=== PATIENT | female | born 1985 ===

== ENCOUNTER 2016-08-26 18:27 | Inpatient (IN) | payer SELFPAY ==
[2016-08-26 20:02] LABS: ADD MANUAL DIFF? NO
[2016-08-26 20:10] LABS: BASO # 0.04 K/mm3 (0.0-2.0); BASO % 0.5 % (0.0-3.0); EOS # 0.1 (0.0-0.7); EOS % 1.3 % (1.5-5.0); GRAN # 5.51 (1.4-6.5); GRAN % 72.2 % (50.0-68.0); HEMATOCRIT 40.6 % (36.0-48.0); LYMPH # 1.3 (1.2-3.4); LYMPH % 17.4 % (22.0-35.0); MEAN CORPUSCULAR HEMOGLOBIN 31.4 pg (25.0-35.0); MEAN CORPUSCULAR HGB CONC 34.5 g/dl (31.0-37.0); MONO # 0.7 (0.1-0.6); MONO % 8.6 % (1.0-6.0); PH,URINE 7.5 (4.7-8.0); PLATELET COUNT 238 10^3/uL (120.0-450.0); RED CELL DISTRIBUTION WIDTH 12.2 % (11.5-14.5); URINE BILIRUBIN MODERATE (NEGATIVE); URINE BLOOD SMALL (NEGATIVE); URINE GLUCOSE (UA) NEGATIVE (NEGATIVE); URINE KETONE 15 mg/dL (NEGATIVE); URINE LEUKOCYTE ESTERASE TRACE Leu/uL (NEGATIVE); URINE PROTEIN TRACE mg/dL (<30 mg/dL); WHITE BLOOD COUNT 7.6 10^3/ul (4.5-11.0)
[2016-08-26 20:16] LABS: URINE APPEARANCE CLEAR (CLEAR); URINE COLOR YELLOW (YELLOW)
[2016-08-26 20:19] LABS: ALB/GLOB RATIO 1.4 (1.1-1.8); ALKALINE PHOSPHATASE 75 U/L (38-133); ALT/SGPT 302 U/L (7-56); AST/SGOT 241 U/L (15-39); BILIRUBIN,TOTAL 2.9 mg/dL (0.2-1.3); BLOOD UREA NITROGEN 5 mg/dL (7-21); CALCIUM 9.5 mg/dL (8.4-10.5); CARBON DIOXIDE 27 mmol/L (21-33); CHLORIDE 102 mmol/L (98-107); GFR AFRICAN-AMERICAN > 60; GLUCOSE,RANDOM 91 mg/dL (70-110); LIPASE 180 U/L (23-300); POTASSIUM 3.9 mmol/L (3.6-5.0); SODIUM 139 mmol/L (132-148); TOTAL PROTEIN 7.6 g/dL (5.8-8.3)
[2016-08-26 20:28] LABS: INR 0.99 (0.93-1.08); PARTIAL THROMBOPLASTIN TIME 25.9 Seconds (23.7-30.8)
[2016-08-26 20:31] LABS: URINE AMORPHOUS SEDIMENT SMALL; URINE BACTERIA MANY (NEG)
--- NOTE | 2016-08-26 21:32 | US ---
EXAM: US Abdomen Limited, Right Upper Quadrant CLINICAL HISTORY: 31 years old, female; Pain; Abdominal pain; Additional info: Ruq pain TECHNIQUE: Real-time ultrasound of the right upper quadrant with image documentation. COMPARISON: No relevant prior studies available. FINDINGS: Liver: Fatty infiltration. No mass. No intrahepatic ductal dilatation. Gallbladder: Gallstones. 0.34 cm wall thickness. No pericholecystic fluid. No sonographic Yancey's sign. Common bile duct: No dilatation. No stones. Pancreas: Unremarkable as visualized. Right kidney: Normal echogenicity. No hydronephrosis. IMPRESSION: 1. Cholelithiasis with minimal gallbladder wall thickening. Clinical correlation is needed. 2. Incidental/non-acute findings are described above.
[2016-08-26] MEDS ORDERED: metroNIDAZOLE IV 500 mg/100 ml 500 MG/100 ML BAG IVPB STA (22:14)
[2016-08-26] MEDS ORDERED: Ciprofloxacin 400mg/200ml D5W 400 MG/200 ML BAG IVPB STA (22:14)
--- NOTE | 2016-08-26 22:39 | ED PDOC ---
Arrival/HPI - General Chief Complaint: Abdominal Pain Time Seen by Provider: 08/26/16 19:05 Historian: Patient - History of Present Illness Narrative History of Present Illness (Text): 08/26/16 22:36 Rekha Burks is a 31 year old female, with no significant past medical history , presents to the emergency department complaining of 2 day duration of epigastric pain and right upper quadrant abdominal pain. Denies any fever, chills, nausea, vomiting, diarrhea, urinary symptoms, or any other complaints at this time. Time/Duration: < week (2 days ) Symptom Onset: Gradual Symptom Course: Unchanged Severity Level: Mild Activities at Onset: Light Past Medical History - Provider Review Nursing Documentation Reviewed: Yes - Infectious Disease Hx of Infectious Diseases: None - Reproductive Menopause: No - Psychiatric Hx Substance Use: No - Anesthesia Hx Anesthesia: No Family/Social History - Physician Review Nursing Documentation Reviewed: Yes Family/Social History: No Known Family HX Smoking Status: Unknown If Ever Smoked Hx Alcohol Use: Yes Frequency of alcohol use: Socially Hx Substance Use: No Allergies/Home Meds Allergies/Adverse Reactions: Allergies No Known Allergies Allergy (Verified 08/26/16 18:49) Home Medications: Home Meds Medication Instructions Recorded Confirmed No Known Home Med 08/26/16 08/26/16 Review of Systems - Physician Review All systems were reviewed & negative as marked: Yes - Review of Systems Constitutional: Normal. absent: Fatigue, Fevers Respiratory: Normal. absent: SOB, Cough, Sputum Cardiovascular: Normal. absent: Chest Pain, Palpitations Gastrointestinal: Abdominal Pain (RUQ and epigastric ). absent: Diarrhea, Nausea, Vomiting Genitourinary Female: Normal. absent: Dysuria, Frequency Musculoskeletal: Normal Neurological: Normal. absent: Headache, Dizziness Psychiatric: Normal Physical Exam Vital Signs Reviewed: Yes Vital Signs Temp Pulse Resp BP Pulse Ox 08/26/16 23:39 16 98 08/26/16 22:53 97.7 F 73 16 112/64 100 08/26/16 18:45 98.6 F 68 16 119/77 100 Temperature: Afebrile Blood Pressure: Normal Pulse: Regular Respiratory Rate: Normal Appearance: Positive for: Well-Appearing, Non-Toxic, Comfortable Pain Distress: None Mental Status: Positive for: Alert and Oriented X 3 - Systems Exam Head: Present: Atraumatic, Normocephalic Pupils: Present: PERRL Conjunctiva: Present: Normal Respiratory/Chest: Present: Clear to Auscultation, Good Air Exchange. No: Respiratory Distress, Accessory Muscle Use Cardiovascular: Present: Regular Rate and Rhythm, Normal S1, S2. No: Murmurs Abdomen: Present: Tenderness (Right upper quadrant tenderness ), Normal Bowel Sounds. No: Distention, Peritoneal Signs, Rebound, Guarding Upper Extremity: Present: Normal Inspection. No: Cyanosis, Edema Lower Extremity: Present: Normal Inspection. No: Edema Neurological: Present: GCS=15, CN II-XII Intact, Speech Normal Skin: Present: Warm, Dry, Normal Color. No: Rashes Psychiatric: Present: Alert, Oriented x 3, Normal Insight, Normal Concentration Medical Decision Making ED Course and Treatment: 08/26/16 22:39 Impression: A 31 year old female who presents to the emergency department complaining of right upper quadrant abdominal pain and epigastric pain for past 2 days. Plan: -- Labs, Lipase -- Cipro, flagyl -- Blood culture -- Urine culture -- POC urine preg -- Urinalysis -- Ultrasound Gallbladder Progress Notes: 08/26/16 22:43 EXAM: US Abdomen Limited, Right Upper Quadrant FINDINGS: Liver: Fatty infiltration. No mass. No intrahepatic ductal dilatation. Gallbladder: Gallstones. 0.34 cm wall thickness. No pericholecystic fluid. No sonographic Yancey's sign. Common bile duct: No dilatation. No stones. Pancreas: Unremarkable as visualized. Right kidney: Normal echogenicity. No hydronephrosis. IMPRESSION: 1. Cholelithiasis with minimal gallbladder wall thickening. Clinical correlation is needed. 2. Incidental/non-acute findings are described above. Case discussed with Dr. Carpenter is aware and agrees with the plan to admit patient to [facility] for cholecystitis. Accepts patient under hospitalist service. - Lab Interpretations Lab Results: 08/26/16 20:01 08/26/16 20:01 Lab Results 08/26/16 20:01: Sodium 139, Potassium 3.9, Chloride 102, Carbon Dioxide 27, Anion Gap 14, BUN 5 L, Creatinine 0.6, Est GFR ( Amer) > 60, Est GFR (Non -Af Amer) > 60, Random Glucose 91, Calcium 9.5, Total Bilirubin 2.9 H, AST 241 H , ALT 302 H, Alkaline Phosphatase 75, Total Protein 7.6, Albumin 4.4, Globulin 3.1, Albumin/Globulin Ratio 1.4, Lipase 180 08/26/16 20:01: Urine Color Yellow, Urine Appearance Clear, Urine pH 7.5, Ur Specific [place] 1.015, Urine Protein Trace H, Urine Glucose (UA) Negative, Urine Ketones 15 H, Urine Blood Small H, Urine Nitrate Negative, Urine Bilirubin Moderate H, Urine Urobilinogen 2.0 H, Ur Leukocyte Esterase Trace H, Urine RBC 10 - 15, Urine WBC 5 - 10, Ur Epithelial Cells 4 - 5, Amorphous Sediment Small, Urine Bacteria Many, Urine Other Uyeast 08/26/16 20:01: PT 10.7, INR 0.99, APTT 25.9 08/26/16 20:01: WBC 7.6, RBC 4.46, Hgb 14.0, Hct 40.6, MCV 91.0, MCH 31.4, MCHC 34.5, RDW 12.2, Plt Count 238, MPV 10.0, Gran % 72.2 H, Lymph % (Auto) 17.4 L, [place] % (Auto) 8.6 H, Eos % (Auto) 1.3 L, Baso % (Auto) 0.5, Gran # 5.51, Lymph # 1.3, [place] # 0.7 H, Eos # 0.1, Baso # 0.04 I have reviewed the lab results: Yes - RAD Interpretation Radiology Orders: 08/26/16 19:24 GALL BLADDER [US] Stat Home Appliance Tech: Radiologist - Medication Orders Current Medication Orders: Acetaminophen (Tylenol 325mg Tab) 650 mg PO Q6 PRN PRN Reason: Pain, Mild (1-3) Docusate Sodium (Colace) 100 mg PO DAILY PRN PRN Reason: Constipation Famotidine (Pepcid) 20 mg PO BID [facility] Ampicillin Sodium/Sulbactam (Sodium 3 gm/ Sodium Chloride) 100 mls @ 200 mls/ hr IVPB Q6 [facility] PRN Reason: Protocol Sodium Chloride (Sodium Chloride 0.9%) 1,000 mls @ 150 mls/hr IV .Q6H40M [facility] Last Admin: 08/27/16 00:22 Dose: 150 mls/hr Morphine Sulfate (Morphine) 2 mg IVP Q4H PRN PRN Reason: Pain, moderate (4-7) Ondansetron HCl (Zofran Inj) 4 mg IVP Q6H PRN PRN Reason: Nausea/Vomiting Discontinued Medications Ciprofloxacin (Cipro 400mg/200ml Dsw) 400 mg in 200 mls @ 133.3 mls/hr IVPB [facility] PRN Reason: Protocol Stop: 08/26/16 23:44 Last Admin: 08/27/16 00:23 Dose: 133.3 mls/hr Metronidazole (Flagyl) 500 mg in 100 mls @ 100 mls/hr IVPB [facility] PRN Reason: Protocol Stop: 08/26/16 23:13 Last Admin: 08/26/16 22:48 Dose: 100 mls/hr Pneumococcal Polyvalent Vaccine (Pneumovax 23 Vaccine) 0.5 ml IM .ONCE ONE Stop: 08/27/16 01:19 - Scribe Statement The provider has reviewed the documentation as recorded by the Francisco Bo Provider Attestation: All medical record entries made by the Francisco were at my direction and personally dictated by me. I have reviewed the chart and agree that the record accurately reflects my personal performance of the history, physical exam, medical decision making, and the department course for this patient. I have also personally directed, reviewed, and agree with the discharge instructions and disposition. Disposition/Present on Arrival - Present on Arrival Any Indicators Present on Arrival: No History of DVT/PE: No History of Uncontrolled Diabetes: No Urinary Catheter: No History of Decub. Ulcer: No History Surgical Site Infection Following: None - Disposition Have Diagnosis and Disposition been Completed?: Yes Diagnosis: Cholecystitis Disposition: HOSPITALIZED Disposition Time: 22:50 Condition: FAIR
[2016-08-26] MEDS ORDERED: Morphine 2 mg/ml ISec IVP PRN (23:00)
--- NOTE | 2016-08-26 23:01 | CP.PCM.HP ---
Addendum entered and electronically signed by Rocio Starr DO 08/27/16 01:06: Heparin not ordered- pt low risk for DVT- to ambulate/OOBTC, use SCD; pepcid for GI ppx. Original Note: <Rocio Starr - Last Filed: 08/27/16 01:00> History of Present Illness - History of Present Illness History of Present Illness: Internal medicine H & P for Hospitalist service- Rocio Starr, PGY-1 Pt S & E at bedside. 31F w/no sig PMH admitted to hospital for abdominal pain x 1 day. Pain is epigastric, radiates to low back B/L, with variable intensity: moderate to severe, intermittent since onset. Pt reports pain onset at 5:30pm on day [employer], lasted until 3am, pt was able to sleep at that point. Pt awoke at 6am with pain of moderate intensity, intensity increased at 10:30am on day of admission, lasted until admission to hospital. Pt reports similar episode of abdominal pain w/shorter duration a few mos prior. No inciting, alleviating or aggravating factors identified. Admits to nausea, chills, diaphoresis. Denies emesis, association with fatty foods, chest pain, SOB, cough, congestion, sore throat, rhinorrhea, constipation, diarrhea, dysuria, urinary frequency, hematuria, hematochezia, changes in vision. PMH: Denies PSH: Denies All: Denies SH: Occasional ETOH use: 2-3 drinks per week, denies tobacco or illicit drug use PMD: [facility] in [place] Pharmacy: [facility] Present on Admission - Present on Admission Any Indicators Present on Admission: No History of DVT/PE: No History of Uncontrolled Diabetes: No Urinary Catheter: No Decubitus Ulcer Present: No Review of Systems - Review of Systems All systems: reviewed and no additional remarkable complaints except - Constitutional Constitutional: Chills. absent: Fever, Weakness - EENT Eyes: absent: Blurred Vision, Change in Vision, Diplopia Ears: absent: Dizziness Nose/Mouth/Throat: absent: Nasal Congestion, Sore Throat, Neck Pain - Cardiovascular Cardiovascular: absent: Chest Pain, Leg Edema, Lightheadedness, Palpitations - Respiratory Respiratory: absent: Cough, Dyspnea, Wheezing, Chest Congestion - Gastrointestinal Gastrointestinal: Abdominal Pain, Nausea. absent: Constipation, Diarrhea, Hematemesis, Hematochezia, Vomiting - Genitourinary Genitourinary: absent: Change in Urinary Stream, Dysuria, Flank Pain, Hematuria - Musculoskeletal Musculoskeletal: absent: Numbness, Tingling - Integumentary Integumentary: absent: Rash - Neurological Neurological: absent: Numbness, Tingling - Endocrine Endocrine: absent: Palpitations Past Patient History - Infectious Disease Hx of Infectious Diseases: None - Past Social History Smoking Status: Unknown If Ever Smoked - PSYCHIATRIC Hx Substance Use: No - ANESTHESIA Hx Anesthesia: No Meds Allergies/Adverse Reactions: Allergies Allergy/AdvReac Type Severity Reaction Status Date / Time No Known Allergies Allergy Verified 08/26/16 18:49 Physical Exam - Constitutional Appears: Non-toxic, No Acute Distress - Head Exam Head Exam: ATRAUMATIC, NORMAL INSPECTION, NORMOCEPHALIC - Eye Exam Eye Exam: EOMI, Normal appearance, PERRL Pupil Exam: NORMAL ACCOMODATION, PERRL - ENT Exam ENT Exam: Mucous Membranes Moist, Normal Exam - Neck Exam Neck exam: Positive for: Full Rom, Normal Inspection - Respiratory Exam Respiratory Exam: Clear to Auscultation Bilateral, NORMAL BREATHING PATTERN - Cardiovascular Exam Cardiovascular Exam: REGULAR RHYTHM, +S1, +S2 - GI/Abdominal Exam GI & Abdominal Exam: Hypoactive Bowel Sounds, Soft. absent: Distended, Firm, Guarding, Rigid, Tenderness - Extremities Exam Extremities exam: Positive for: full ROM, normal inspection. Negative for: pedal edema, tenderness - Back Exam Back exam: FULL ROM, NORMAL INSPECTION. absent: paraspinal tenderness, tenderness - Neurological Exam Neurological exam: Alert, CN II-XII Intact, Oriented x3 - Psychiatric Exam Psychiatric exam: Normal Affect, Normal Mood - Skin Skin Exam: Dry, Intact, Normal Color, Warm Results - Vital Signs Recent Vital Signs: Last Vital Signs Temp 97.7 F 08/26/16 22:53 Pulse 73 08/26/16 22:53 Resp 16 08/26/16 22:53 BP 112/64 08/26/16 22:53 Pulse Ox 100 08/26/16 22:53 - Labs Result Diagrams: 08/26/16 20:01 08/26/16 20:01 Assessment & Plan - Assessment and Plan (Free Text) Assessment: Acute Cholecystitis Afebrile No leukocytosis T bili 2.9 AST 241 ALT 302 AlP 75 Lipase 180 U/A pos for trace LE, neg for nitrates FU blood cx FU urine cx Morphine 2mg Q4H PRN Colace 100mg PO daily PRN constipation Zofran 4mg Q6H PRN Unasyn 3gm Q6H Given Cipro and Flagyl in ED Ab U/S 1. Cholelithiasis with minimal gallbladder wall thickening. Clinical correlation is needed. Gen surg consulted- [facility]- [facility] for GI consult GI consulted- [facility]/DVT ppx SCD Heparin Dispo Admit to med surg VS Q4H [facility] DW attending - Date & Time Date: 08/26/16 Time: 23:01 Decision To Admit - Pt Status Changed To: Hospital Disposition Of: Observation - . Bed Request Type: Med/Surg Admitting Physician: Terrance Carpenter MD <Terrance Carpenter MD - Last Filed: 08/31/16 08:10> Results - Vital Signs Recent Vital Signs: Last Vital Signs Temp 98.1 F 08/28/16 17:28 Pulse 89 08/28/16 18:28 Resp 20 08/28/16 18:28 BP 108/67 08/28/16 18:28 Pulse Ox 99 08/28/16 18:28 - Labs Result Diagrams: 08/29/16 06:00 08/29/16 06:00 Attending/Attestation - Attestation I have personally seen and examined this patient.: Yes I have fully participated in the care of the patient.: Yes I have reviewed all pertinent clinical information: Yes Notes (Text): 08/31/16 08:10 -I agree with the above H&P completed by the resident physician.
[2016-08-27] MEDS: Sodium Chloride 0.9% 1,000 ML IV SCH ×3 (00:22→13:03)
[2016-08-27] MEDS ORDERED: Pneumococcal 23-Valent Vaccine IM ONE (01:18)
--- NOTE | 2016-08-27 04:35 | CP.PCM.CON ---
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 Johns 31F w/no sig PMH admitted to hospital for abdominal pain x 1 day. Pain is epigastric, radiates to low back B/L, with variable intensity: moderate to severe, intermittent since onset. Pt reports pain onset at 5:30pm on day [employer], lasted until 3am, pt was able to sleep at that point. Pt awoke at 6am with pain of moderate intensity, intensity increased at 10:30am on day of admission, lasted until admission to hospital. Pt reports similar episode of abdominal pain w/shorter duration a few mos prior. This is the 3rd time. No inciting, alleviating or aggravating factors identified. Admits to nausea, chills, diaphoresis. Denies emesis, association with fatty foods, chest pain, SOB, cough , congestion, sore throat, rhinorrhea, constipation, diarrhea, dysuria, urinary frequency, chane in urine or stool color, hematuria, hematochezia, hematemesis, changes in vision. Pt reports having EGD in the past. It was normal. There's a family hx of cholecystectomy. Review of Systems - Review of Systems Review of Systems: See HPI Past Patient History - Infectious Disease Hx of Infectious Diseases: None - Past Social History Smoking Status: Unknown If Ever Smoked - CARDIAC Hx Cardiac Disorders: No - PULMONARY Hx Respiratory Disorders: No - NEUROLOGICAL Hx Neurological Disorder: No - HEENT Hx HEENT Problems: No - RENAL Hx Chronic Kidney Disease: No - ENDOCRINE/METABOLIC Hx Endocrine Disorders: No - HEMATOLOGICAL/ONCOLOGICAL Hx Blood Disorders: No - INTEGUMENTARY Hx Dermatological Problems: No - MUSCULOSKELETAL/RHEUMATOLOGICAL Hx Falls: No - GASTROINTESTINAL Hx Gastrointestinal Disorders: No - GENITOURINARY/GYNECOLOGICAL Hx Genitourinary Disorders: No - PSYCHIATRIC Hx Substance Use: No - SURGICAL HISTORY Hx Surgeries: No - ANESTHESIA Hx Anesthesia: No Meds Allergies/Adverse Reactions: Allergies Allergy/AdvReac Type Severity Reaction Status Date / Time No Known Allergies Allergy Verified 08/26/16 18:49 - Medications Medications: Current Medications Acetaminophen (Tylenol 325mg Tab) 650 mg PO Q6 PRN PRN Reason: Pain, Mild (1-3) Docusate Sodium (Colace) 100 mg PO DAILY PRN PRN Reason: Constipation Famotidine (Pepcid) 20 mg PO BID [facility] Ampicillin Sodium/Sulbactam (Sodium 3 gm/ Sodium Chloride) 100 mls @ 200 mls/ hr IVPB Q6 [facility] PRN Reason: Protocol Sodium Chloride (Sodium Chloride 0.9%) 1,000 mls @ 150 mls/hr IV .Q6H40M [facility] Last Admin: 08/27/16 00:22 Dose: 150 mls/hr Morphine Sulfate (Morphine) 2 mg IVP Q4H PRN PRN Reason: Pain, moderate (4-7) Ondansetron HCl (Zofran Inj) 4 mg IVP Q6H PRN PRN Reason: Nausea/Vomiting Physical Exam - Constitutional Appears: No Acute Distress - Head Exam Head Exam: ATRAUMATIC, NORMAL INSPECTION, NORMOCEPHALIC - Eye Exam Eye Exam: EOMI, Normal appearance, PERRL Pupil Exam: NORMAL ACCOMODATION, PERRL - ENT Exam ENT Exam: Mucous Membranes Moist, Normal Exam - Neck Exam Neck exam: Positive for: Normal Inspection - Respiratory Exam Respiratory Exam: Clear to Auscultation Bilateral, NORMAL BREATHING PATTERN - Cardiovascular Exam Cardiovascular Exam: REGULAR RHYTHM - GI/Abdominal Exam GI & Abdominal Exam: Normal Bowel Sounds, Soft. absent: Tenderness - Extremities Exam Extremities exam: Positive for: full ROM, normal inspection - Back Exam Back exam: NORMAL INSPECTION - Neurological Exam Neurological exam: Alert, CN II-XII Intact, Normal Gait, Oriented x3, Reflexes Normal - Psychiatric Exam Psychiatric exam: Normal Affect, Normal Mood - Skin Skin Exam: Dry, Intact, Normal Color, Warm Results - Vital Signs Recent Vital Signs: Last Vital Signs Temp 97.7 F 08/27/16 01:01 Pulse 60 08/27/16 01:01 Resp 20 08/27/16 01:01 BP 90/58 L 08/27/16 01:01 Pulse Ox 98 08/26/16 23:39 - Labs Result Diagrams: 08/26/16 20:01 08/26/16 20:01 Assessment & Plan - Assessment and Plan (Free Text) Assessment: Recurrent biliary colic v choledocolithiasis US: Cholelithiasis Tibili 3 [id number] ALT 300 No leukocytosis, Afebrile -Rec GI consult for possible choledocolithiasis -Trend LFT -NPO -IVF -ABX -Pain control -We will closely monitor Will CASSIA Johns
[2016-08-27] MEDS: Ampicillin/Sulbactam 3 GM in Sodium Chloride 0.9% 100 ML IVPB SCH ×2 (04:36→05:55)
[2016-08-27 07:42] LABS: ADD MANUAL DIFF? NO
[2016-08-27 07:44] LABS: BASO # 0.06 K/mm3 (0.0-2.0); BASO % 1.1 % (0.0-3.0); EOS # 0.2 (0.0-0.7); EOS % 2.9 % (1.5-5.0); GRAN # 2.44 (1.4-6.5); GRAN % 46.6 % (50.0-68.0); HEMATOCRIT 37.9 % (36.0-48.0); LYMPH % 37.8 % (22.0-35.0); MEAN CELL VOLUME 91.1 fL (80.0-105.0); MEAN PLATELET VOLUME 9.8 fl (7.0-11.0); MONO # 0.6 (0.1-0.6); MONO % 11.6 % (1.0-6.0); PLATELET COUNT 209 10^3/uL (120.0-450.0); RED CELL DISTRIBUTION WIDTH 12.4 % (11.5-14.5); WHITE BLOOD COUNT 5.2 10^3/ul (4.5-11.0)
[2016-08-27 08:01] LABS: ALB/GLOB RATIO 1.4 (1.1-1.8); ALKALINE PHOSPHATASE 113 U/L (38-133); ALT/SGPT 329 U/L (7-56); AST/SGOT 295 U/L (15-39); BILIRUBIN,TOTAL 1.4 mg/dL (0.2-1.3); BLOOD UREA NITROGEN 5 mg/dL (7-21); CARBON DIOXIDE 25 mmol/L (21-33); CHLORIDE 105 mmol/L (95-110); GFR AFRICAN-AMERICAN > 60; GLUCOSE,RANDOM 84 mg/dL (70-110); POTASSIUM 3.8 mmol/L (3.6-5.0); SODIUM 140 mmol/L (132-148); TOTAL PROTEIN 6.7 g/dL (5.8-8.3)
[2016-08-27] MEDS ORDERED: Ciprofloxacin 200mg/100ml D5W 100 ML IVPB SCH (10:00)
[2016-08-27] MEDS: metroNIDAZOLE IV 500 mg/100 ml 500 MG/100 ML BAG IVPB SCH ×3 (11:00→22:44)
--- NOTE | 2016-08-27 11:22 | CP.PCM.CON ---
<Gaby Kline - Last Filed: 08/27/16 15:59> History of Present Illness - History of Present Illness History of Present Illness: Gastroenterology Fellow/PGY4 Consult Note 31 year old female with no prior medical history presenting with abdominal pain. Patient describes intermittent progressive epigastric pain on thursday with radiation to lower back. Sudden constant discomfort on Thursday with associated nausea, chills, and sweats leading to ER presentation. Similar symptoms 2 months ago for one night with spontaneous resolution. Denies vomiting, fever, hematemesis, diarrhea, constipation, melena, hematochezia, jaundice, scleral icterus, pruritis, or unintentional weight loss. Pain currently resolved. No prior EGD or colonoscopy. Family- mother- cholelithiasis s/p cholecystectomy, paternal grandfather- colorectal cancer in late 50s of age Social-denies tobacco or illicit drug use, social wine intake Surgery-none Review of Systems - Review of Systems Review of Systems: A 12-point review of systems negative except for as above Past Patient History - Infectious Disease Hx of Infectious Diseases: None - Past Social History Smoking Status: Unknown If Ever Smoked - CARDIAC Hx Cardiac Disorders: No - PULMONARY Hx Respiratory Disorders: No - NEUROLOGICAL Hx Neurological Disorder: No - HEENT Hx HEENT Problems: No - RENAL Hx Chronic Kidney Disease: No - ENDOCRINE/METABOLIC Hx Endocrine Disorders: No - HEMATOLOGICAL/ONCOLOGICAL Hx Blood Disorders: No - INTEGUMENTARY Hx Dermatological Problems: No - MUSCULOSKELETAL/RHEUMATOLOGICAL Hx Falls: No - GASTROINTESTINAL Hx Gastrointestinal Disorders: No - GENITOURINARY/GYNECOLOGICAL Hx Genitourinary Disorders: No - PSYCHIATRIC Hx Substance Use: No - SURGICAL HISTORY Hx Surgeries: No - ANESTHESIA Hx Anesthesia: No Meds Allergies/Adverse Reactions: Allergies Allergy/AdvReac Type Severity Reaction Status Date / Time No Known Allergies Allergy Verified 08/26/16 18:49 - Medications Medications: Current Medications Acetaminophen (Tylenol 325mg Tab) 650 mg PO Q6 PRN PRN Reason: Pain, Mild (1-3) Docusate Sodium (Colace) 100 mg PO DAILY PRN PRN Reason: Constipation Last Admin: 08/27/16 09:12 Dose: 100 mg Famotidine (Pepcid) 20 mg PO BID [facility] Last Admin: 08/27/16 09:09 Dose: 20 mg Sodium Chloride (Sodium Chloride 0.9%) 1,000 mls @ 150 mls/hr IV .Q6H40M [facility] Last Admin: 08/27/16 00:22 Dose: 150 mls/hr Ciprofloxacin (Cipro 200mg/100ml D5w) 100 mls @ 67 mls/hr IVPB Q12 [facility] PRN Reason: Protocol Stop: 08/27/16 11:30 Metronidazole (Flagyl) 500 mg in 100 mls @ 100 mls/hr IVPB Q8 [facility] PRN Reason: Protocol Morphine Sulfate (Morphine) 2 mg IVP Q4H PRN PRN Reason: Pain, moderate (4-7) Ondansetron HCl (Zofran Inj) 4 mg IVP Q6H PRN PRN Reason: Nausea/Vomiting Physical Exam - Constitutional Appears: Non-toxic, No Acute Distress - Head Exam Head Exam: ATRAUMATIC, NORMOCEPHALIC - Eye Exam Eye Exam: EOMI, PERRL Pupil Exam: PERRL. absent: Miosis, Mydriatic - ENT Exam ENT Exam: Mucous Membranes Moist, Normal Oropharynx - Neck Exam Neck exam: Positive for: Full Rom, Normal Inspection - Respiratory Exam Respiratory Exam: Clear to Auscultation Bilateral. absent: Rales, Rhonchi, Wheezes - Cardiovascular Exam Cardiovascular Exam: RRR, +S1, +S2. absent: Gallop, Rubs - GI/Abdominal Exam GI & Abdominal Exam: Normal Bowel Sounds, Soft. absent: Distended, Firm, Guarding, Organomegaly, Rebound, Rigid, Tenderness - Extremities Exam Extremities exam: Positive for: full ROM. Negative for: pedal edema - Neurological Exam Neurological exam: Alert, Oriented x3 - Psychiatric Exam Psychiatric exam: Normal Affect, Normal Mood - Skin Skin Exam: Dry, Intact, Normal Color, Warm Results - Vital Signs Recent Vital Signs: Last Vital Signs Temp 97.6 F 08/27/16 04:00 Pulse 51 L 08/27/16 04:00 Resp 19 08/27/16 04:00 BP 98/56 L 08/27/16 04:00 Pulse Ox 97 08/27/16 04:00 - Labs Result Diagrams: 08/27/16 07:30 08/27/16 07:30 Labs: Laboratory Results - last 24 hr 08/27/16 08/27/16 07:30 07:30 WBC 5.2 D RBC 4.16 Hgb 12.9 Hct 37.9 MCV 91.1 MCH 31.0 MCHC 34.0 RDW 12.4 Plt Count 209 MPV 9.8 Gran % 46.6 L Lymph % (Auto) 37.8 H [place] % (Auto) 11.6 H Eos % (Auto) 2.9 Baso % (Auto) 1.1 Gran # 2.44 Lymph # 2.0 [place] # 0.6 Eos # 0.2 Baso # 0.06 Sodium 140 Potassium 3.8 Chloride 105 Carbon Dioxide 25 Anion Gap 14 BUN 5 L Creatinine 0.6 Est GFR ( Amer) > 60 Est GFR (Non-Af Amer) > 60 Random Glucose 84 Calcium 9.0 Total Bilirubin 1.4 H AST 295 H ALT 329 H Alkaline Phosphatase 113 Total Protein 6.7 Albumin 3.9 Globulin 2.7 Albumin/Globulin Ratio 1.4 Assessment & Plan - Assessment and Plan (Free Text) Assessment: 31 year old female with no prior medical history presenting with abdominal pain. Ultrasound showed cholelithiasis with cholecystitis. No prior EGD or colonoscopy. Plan: >ordered MRCP- no choledocholithiasis >surgery managing- cholecystectomy tomorrow >>clear liquids, NPO after midnight >supportive care- pain control, IVFs, antiemetics >will follow clinical course <Todd GIRON,[facility] - Last Filed: 08/27/16 17:35> Meds - Medications Medications: Current Medications Acetaminophen (Tylenol 325mg Tab) 650 mg PO Q6 PRN PRN Reason: Pain, Mild (1-3) Docusate Sodium (Colace) 100 mg PO DAILY PRN PRN Reason: Constipation Last Admin: 08/27/16 09:12 Dose: 100 mg Famotidine (Pepcid) 20 mg PO BID [facility] Last Admin: 08/27/16 17:19 Dose: 20 mg Sodium Chloride (Sodium Chloride 0.9%) 1,000 mls @ 150 mls/hr IV .Q6H40M [facility] Last Admin: 08/27/16 13:03 Dose: 150 mls/hr Metronidazole (Flagyl) 500 mg in 100 mls @ 100 mls/hr IVPB Q8 [facility] PRN Reason: Protocol Last Admin: 08/27/16 15:39 Dose: 100 mls/hr Ciprofloxacin (Cipro 400mg/200ml Dsw) 400 mg in 200 mls @ 133.3 mls/hr IVPB Q12 [facility] PRN Reason: Protocol Stop: 08/28/16 11:31 Morphine Sulfate (Morphine) 2 mg IVP Q4H PRN PRN Reason: Pain, moderate (4-7) Ondansetron HCl (Zofran Inj) 4 mg IVP Q6H PRN PRN Reason: Nausea/Vomiting Results - Vital Signs Recent Vital Signs: Last Vital Signs Temp 97.6 F 08/27/16 04:00 Pulse 51 L 08/27/16 04:00 Resp 19 08/27/16 04:00 BP 98/56 L 08/27/16 04:00 Pulse Ox 97 08/27/16 04:00 - Labs Result Diagrams: 08/27/16 07:30 08/27/16 07:30 Labs: Laboratory Results - last 24 hr 08/27/16 16:29 Beta HCG, Quant < 2.39 Attending/Attestation - Attestation I have personally seen and examined this patient.: Yes I have fully participated in the care of the patient.: Yes I have reviewed all pertinent clinical information: Yes Notes (Text): 08/27/16 17:30 This is a 31 year old female with no prior medical history presenting with abdominal pain. Ultrasound showed cholelithiasis with cholecystitis. Pending MRCP. Scheduled MRCP- pending imaging. CBD normal on sonogram. CCY scheduled with surgery in am. Clear liquid diet tonight and NPO past midnight.
--- NOTE | 2016-08-27 12:03 | CP.PCM.PN ---
<Melissa Groves - Last Filed: 08/27/16 15:50> Subjective - Date & Time of Evaluation Date of Evaluation: 08/27/16 Time of Evaluation: 07:30 - Subjective Subjective: Hospitalist progress note for Dr. Cason Patient s/e at bedside this AM. NAEO. States that her pain and nausea is resolved. Denies vomiting, diarrhea, constipation, back pain, fevers, chills, chest pain, and SOB. States that she is hungry. Explained that she is NPO until GI and surgery decide plan of her care. Patient understood and agreed. Objective - Vital Signs/Intake and Output Vital Signs (last 24 hours): Temp Pulse Resp BP Pulse Ox 97.6 F 51 L 19 98/56 L 97 08/27/16 04:00 08/27/16 04:00 08/27/16 04:00 08/27/16 04:00 08/27/16 04:00 Intake and Output: 08/27/16 08/27/16 06:59 18:59 Intake Total 1500 Balance 1500 - Medications Medications: Current Medications Acetaminophen (Tylenol 325mg Tab) 650 mg PO Q6 PRN PRN Reason: Pain, Mild (1-3) Docusate Sodium (Colace) 100 mg PO DAILY PRN PRN Reason: Constipation Last Admin: 08/27/16 09:12 Dose: 100 mg Famotidine (Pepcid) 20 mg PO BID [facility] Last Admin: 08/27/16 09:09 Dose: 20 mg Sodium Chloride (Sodium Chloride 0.9%) 1,000 mls @ 150 mls/hr IV .Q6H40M [facility] Last Admin: 08/27/16 00:22 Dose: 150 mls/hr Metronidazole (Flagyl) 500 mg in 100 mls @ 100 mls/hr IVPB Q8 [facility] PRN Reason: Protocol Morphine Sulfate (Morphine) 2 mg IVP Q4H PRN PRN Reason: Pain, moderate (4-7) Ondansetron HCl (Zofran Inj) 4 mg IVP Q6H PRN PRN Reason: Nausea/Vomiting - Labs Labs: 08/27/16 07:30 08/27/16 07:30 PT 10.7 Seconds (9.9-11.8) 08/26/16 20:01 INR 0.99 (0.93-1.08) 08/26/16 20:01 APTT 25.9 Seconds (23.7-30.8) 08/26/16 20:01 - Constitutional Appears: Well, Non-toxic, No Acute Distress - Head Exam Head Exam: ATRAUMATIC, NORMOCEPHALIC - Eye Exam Eye Exam: Normal appearance. absent: Conjunctival injection, Scleral icterus - ENT Exam ENT Exam: Mucous Membranes Moist, Normal Oropharynx - Respiratory Exam Respiratory Exam: Clear to Ausculation Bilateral, NORMAL BREATHING PATTERN. absent: Accessory Muscle Use, Respiratory Distress - Cardiovascular Exam Cardiovascular Exam: RRR, +S1, +S2. absent: Murmur - GI/Abdominal Exam GI & Abdominal Exam: Soft. absent: Distended, Tenderness, Mass Additional comments: de la torre's negative - Extremities Exam Extremities Exam: absent: Calf Tenderness, Pedal Edema, Tenderness - Back Exam Back Exam: NORMAL INSPECTION. absent: CVA tenderness (L), CVA tenderness (R) - Neurological Exam Neurological Exam: Alert, Awake, Oriented x3 - Psychiatric Exam Psychiatric exam: Normal Affect, Normal Mood - Skin Skin Exam: Dry, Intact, Normal Color, Warm Assessment and Plan - Assessment and Plan (Free Text) Assessment: 31F with no significant PMH who presented with 2nd episode Acute Cholecystitis Afebrile No leukocytosis T bili 2.9-->1.4 AST 241-->259 ALT 302-->321 AlP 75-->115 Abd US: gallstones, minimal wall thickening, no CBD dilation or stones MRCP: no CBD stones visible Hepatitis panel negative plan: FU blood cx FU urine cx Gen surg consulted- Andreas: plans for surgery tomorrow GI consulted- Belle--follow up recs Morphine 2mg Q4H PRN Colace 100mg PO daily PRN constipation Zofran 4mg Q6H PRN nausea Cipro/flagyl CLD, NPO after midnight GI/DVT ppx SCD Dispo Continue med/surg admit overnight VS Q4H CLD, NPO after midnight Patient seen and discussed with Dr. Kamla Groves, PGY1 <Bladimir Cason - Last Filed: 08/27/16 16:12> Objective - Vital Signs/Intake and Output Vital Signs (last 24 hours): Temp Pulse Resp BP Pulse Ox 97.6 F 51 L 19 98/56 L 97 08/27/16 04:00 08/27/16 04:00 08/27/16 04:00 08/27/16 04:00 08/27/16 04:00 Intake and Output: 08/27/16 08/27/16 06:59 18:59 Intake Total 1500 1000 Balance 1500 1000 - Medications Medications: Current Medications Acetaminophen (Tylenol 325mg Tab) 650 mg PO Q6 PRN PRN Reason: Pain, Mild (1-3) Docusate Sodium (Colace) 100 mg PO DAILY PRN PRN Reason: Constipation Last Admin: 08/27/16 09:12 Dose: 100 mg Famotidine (Pepcid) 20 mg PO BID [facility] Last Admin: 08/27/16 09:09 Dose: 20 mg Sodium Chloride (Sodium Chloride 0.9%) 1,000 mls @ 150 mls/hr IV .Q6H40M [facility] Last Admin: 08/27/16 13:03 Dose: 150 mls/hr Metronidazole (Flagyl) 500 mg in 100 mls @ 100 mls/hr IVPB Q8 [facility] PRN Reason: Protocol Last Admin: 08/27/16 15:39 Dose: 100 mls/hr Ciprofloxacin (Cipro 400mg/200ml Dsw) 400 mg in 200 mls @ 133.3 mls/hr IVPB Q12 [facility] PRN Reason: Protocol Stop: 08/28/16 11:31 Morphine Sulfate (Morphine) 2 mg IVP Q4H PRN PRN Reason: Pain, moderate (4-7) Ondansetron HCl (Zofran Inj) 4 mg IVP Q6H PRN PRN Reason: Nausea/Vomiting - Labs Labs: 08/27/16 07:30 08/27/16 07:30 PT 10.7 Seconds (9.9-11.8) 08/26/16 20:01 INR 0.99 (0.93-1.08) 08/26/16 20:01 APTT 25.9 Seconds (23.7-30.8) 08/26/16 20:01 Attending/Attestation - Attestation I have personally seen and examined this patient.: Yes I have fully participated in the care of the patient.: Yes I have reviewed all pertinent clinical information, including history, physical exam and plan: Yes Notes (Text): 08/27/16 16:09 31 year old female with no significant past medical history who presented wtih RUQ pain. She was found to have cholelithiasis with no CBD stones on US and MRCP. LFTs are elevated. Hepatitis panel is negative. GI and surgery are following. Continue with iv fluids, analgesics and antibiotics as per GI/ surgery. Plan is for lap mirna tomorrow. Bladimir Cason MD Hospitalist.
--- NOTE | 2016-08-27 15:46 | MRI ---
PROCEDURE: Magnetic Resonance Cholangiopancreatography HISTORY: Rule out common duct stone COMPARISON: None available. TECHNIQUE: Multiplanar, multisequence MR images of the abdomen were obtained, including heavily T2 weighted MRCP images of the biliary system. Rotating maximum intensity projection images of the biliary system were generated. FINDINGS: MRCP: The common bile duct is of a normal caliber. No evidence of choledocholithiasis. No intrahepatic biliary ductal dilatation. LIVER: Unremarkable. GALLBLADDER: Multiple gallstones SPLEEN: Unremarkable. PANCREAS: Unremarkable. ADRENALS: Unremarkable. KIDNEYS: Unremarkable. AORTA: No aneurysm. ASCITES: None. OTHER FINDINGS: None. IMPRESSION: Gallstones. No evidence of common duct bile duct stone
--- NOTE | 2016-08-27 18:57 | CARD ---
APPROVED REPORT EKG Measurement Heart [id number] DE [id number] [id number] <Conclusion> Normal sinus rhythm Normal ECG
[2016-08-27] MEDS: Ciprofloxacin 400mg/200ml D5W 400 MG/200 ML BAG IVPB SCH (22:43)
[2016-08-28] MEDS: Sodium Chloride 0.9% 1,000 ML IV SCH (02:20)
[2016-08-28] MEDS: metroNIDAZOLE IV 500 mg/100 ml 500 MG/100 ML BAG IVPB SCH ×3 (05:53→22:00)
[2016-08-28 07:03] LABS: ADD MANUAL DIFF? NO
--- NOTE | 2016-08-28 07:15 | CP.PCM.PN ---
<RaisaGaby - Last Filed: 08/28/16 07:12> Subjective - Date & Time of Evaluation Date of Evaluation: 08/28/16 Time of Evaluation: 07:12 - Subjective Subjective: Gastroenterology Fellow/PGY4 Progress Note Patient slept well. Denies abdominal pain. States she is hungry. A 12-point review of systems negative except for as above. Objective - Vital Signs/Intake and Output Vital Signs (last 24 hours): Temp Pulse Resp BP Pulse Ox 97.6 F 51 L 19 98/56 L 97 08/27/16 16:00 08/27/16 16:00 08/27/16 16:00 08/27/16 16:00 08/27/16 16:00 Intake and Output: 08/28/16 08/28/16 06:59 18:59 Intake Total 2600 Balance 2600 - Medications Medications: Current Medications Acetaminophen (Tylenol 325mg Tab) 650 mg PO Q6 PRN PRN Reason: Pain, Mild (1-3) Docusate Sodium (Colace) 100 mg PO DAILY PRN PRN Reason: Constipation Last Admin: 08/27/16 09:12 Dose: 100 mg Famotidine (Pepcid) 20 mg PO BID [facility] Last Admin: 08/27/16 17:19 Dose: 20 mg Sodium Chloride (Sodium Chloride 0.9%) 1,000 mls @ 150 mls/hr IV .Q6H40M [facility] Last Admin: 08/28/16 02:20 Dose: 150 mls/hr Metronidazole (Flagyl) 500 mg in 100 mls @ 100 mls/hr IVPB Q8 [facility] PRN Reason: Protocol Last Admin: 08/28/16 05:53 Dose: 100 mls/hr Ciprofloxacin (Cipro 400mg/200ml Dsw) 400 mg in 200 mls @ 133.3 mls/hr IVPB Q12 [facility] PRN Reason: Protocol Stop: 08/28/16 11:31 Last Admin: 08/27/16 22:43 Dose: 133.3 mls/hr Morphine Sulfate (Morphine) 2 mg IVP Q4H PRN PRN Reason: Pain, moderate (4-7) Ondansetron HCl (Zofran Inj) 4 mg IVP Q6H PRN PRN Reason: Nausea/Vomiting - Labs Labs: PT 10.7 Seconds (9.9-11.8) 08/26/16 20:01 INR 0.99 (0.93-1.08) 08/26/16 20:01 APTT 25.9 Seconds (23.7-30.8) 08/26/16 20:01 - Constitutional Appears: Non-toxic, No Acute Distress - Head Exam Head Exam: ATRAUMATIC, NORMOCEPHALIC - Eye Exam Eye Exam: EOMI, PERRL Pupil Exam: PERRL. absent: Miosis, Mydriatic - ENT Exam ENT Exam: Mucous Membranes Moist, Normal Oropharynx - Neck Exam Neck Exam: Full ROM, Normal Inspection - Respiratory Exam Respiratory Exam: Clear to Ausculation Bilateral. absent: Rales, Rhonchi, Wheezes - Cardiovascular Exam Cardiovascular Exam: RRR, +S1, +S2. absent: Gallop, Rubs - GI/Abdominal Exam GI & Abdominal Exam: Soft, Normal Bowel Sounds. absent: Distended, Firm, Guarding, Rigid, Tenderness, Organomegaly, Rebound - Extremities Exam Extremities Exam: Full ROM. absent: Pedal Edema - Neurological Exam Neurological Exam: Alert, Awake - Psychiatric Exam Psychiatric exam: Normal Affect, Normal Mood - Skin Skin Exam: Dry, Intact, Normal Color, Warm Assessment and Plan - Assessment and Plan (Free Text) Assessment: 31 year old female with no prior medical history presenting with abdominal pain. Ultrasound showed cholelithiasis with cholecystitis. No prior EGD or colonoscopy. Plan: >MRCP negative >surgery managing- cholecystectomy today 12PM >NPO >thank you for opportunity to participate in the care of this patient <Michael Eldridge - Last Filed: 08/28/16 09:39> Objective - Vital Signs/Intake and Output Vital Signs (last 24 hours): Temp Pulse Resp BP Pulse Ox 98.6 F 62 18 97/58 L 99 08/28/16 06:00 08/28/16 06:00 08/28/16 06:00 08/28/16 06:00 08/28/16 06:00 Intake and Output: 08/28/16 08/28/16 06:59 18:59 Intake Total 2600 Balance 2600 - Medications Medications: Current Medications Acetaminophen (Tylenol 325mg Tab) 650 mg PO Q6 PRN PRN Reason: Pain, Mild (1-3) Docusate Sodium (Colace) 100 mg PO DAILY PRN PRN Reason: Constipation Last Admin: 08/27/16 09:12 Dose: 100 mg Famotidine (Pepcid) 20 mg PO BID [facility] Last Admin: 08/28/16 09:06 Dose: 20 mg Sodium Chloride (Sodium Chloride 0.9%) 1,000 mls @ 150 mls/hr IV .Q6H40M [facility] Last Admin: 08/28/16 02:20 Dose: 150 mls/hr Metronidazole (Flagyl) 500 mg in 100 mls @ 100 mls/hr IVPB Q8 [facility] PRN Reason: Protocol Last Admin: 08/28/16 05:53 Dose: 100 mls/hr Ciprofloxacin (Cipro 400mg/200ml Dsw) 400 mg in 200 mls @ 133.3 mls/hr IVPB Q12 [facility] PRN Reason: Protocol Stop: 08/28/16 11:31 Last Admin: 08/28/16 09:06 Dose: 133.3 mls/hr Morphine Sulfate (Morphine) 2 mg IVP Q4H PRN PRN Reason: Pain, moderate (4-7) Ondansetron HCl (Zofran Inj) 4 mg IVP Q6H PRN PRN Reason: Nausea/Vomiting - Labs Labs: 08/28/16 06:00 08/28/16 06:00 PT 10.7 Seconds (9.9-11.8) 08/26/16 20:01 INR 0.99 (0.93-1.08) 08/26/16 20:01 APTT 25.9 Seconds (23.7-30.8) 08/26/16 20:01 Attending/Attestation - Attestation I have personally seen and examined this patient.: Yes I have fully participated in the care of the patient.: Yes I have reviewed all pertinent clinical information, including history, physical exam and plan: Yes Notes (Text): Patient seen and examined with GI fellow. Agree with her note as documented above with the following additions/exceptions. This is a 31 year old female who presents with abdominal pain due to cholecystitis. She is found to have abnormal LFTs, now downtrending/improved. Her lipase is normal. She had MRCP yesterday which was negative for choledocholithiasis. She currently denies any abdominal pain, nausea or vomiting. She tolerating liquids yesterday and is NPO for cholecystectomy today. Continue supportive care. Further management as per surgical team. Please call with any questions/concerns. 08/28/16 09:38
[2016-08-28 07:18] LABS: BASO # 0.06 K/mm3 (0.0-2.0); BASO % 1.2 % (0.0-3.0); EOS # 0.2 (0.0-0.7); EOS % 3.2 % (1.5-5.0); GRAN # 2.38 (1.4-6.5); GRAN % 47.1 % (50.0-68.0); HEMATOCRIT 35.5 % (36.0-48.0); LYMPH # 1.9 (1.2-3.4); LYMPH % 38.2 % (22.0-35.0); MEAN CORPUSCULAR HEMOGLOBIN 30.8 pg (25.0-35.0); MEAN CORPUSCULAR HGB CONC 33.8 g/dl (31.0-37.0); MEAN PLATELET VOLUME 9.8 fl (7.0-11.0); MONO # 0.5 (0.1-0.6); MONO % 10.3 % (1.0-6.0); PLATELET COUNT 192 10^3/uL (120.0-450.0); RED CELL DISTRIBUTION WIDTH 12.2 % (11.5-14.5); WHITE BLOOD COUNT 5.1 10^3/ul (4.5-11.0)
[2016-08-28 07:39] LABS: ALB/GLOB RATIO 1.2 (1.1-1.8); ALKALINE PHOSPHATASE 88 U/L (38-133); ALT/SGPT 202 U/L (7-56); AST/SGOT 74 U/L (15-39); BILIRUBIN,TOTAL 0.8 mg/dL (0.2-1.3); BLOOD UREA NITROGEN 5 mg/dL (7-21); CALCIUM 8.5 mg/dL (8.4-10.5); CARBON DIOXIDE 23 mmol/L (21-33); CHLORIDE 108 mmol/L (98-107); GFR AFRICAN-AMERICAN > 60; GLUCOSE,RANDOM 71 mg/dL (70-110); POTASSIUM 3.9 mmol/L (3.6-5.0); SODIUM 138 mmol/L (132-148)
[2016-08-28] MEDS: Ciprofloxacin 400mg/200ml D5W 400 MG/200 ML BAG IVPB SCH (09:06)
[2016-08-28] MEDS ORDERED: Propofol 10 mg/ml Inj (20 ML) ONE ×2 (13:57→16:09)
[2016-08-28] MEDS ORDERED: Midazolam 2 MG/2 ML VIAL ONE ×2 (13:58→16:06)
[2016-08-28] MEDS ORDERED: Rocuronium 10 mg/ml (5 ml) ONE (14:03)
--- NOTE | 2016-08-28 15:24 | CP.PCM.PN ---
<Melissa Groves - Last Filed: 08/28/16 15:19> Subjective - Date & Time of Evaluation Date of Evaluation: 08/28/16 Time of Evaluation: 10:45 - Subjective Subjective: Hospitalist progress note for Dr. Eric Patient was seen and examined at bedside. NAEO. Patient denies any abdominal pain, nausea, vomiting, diarrhea, fevers, chills or any other symptoms. Objective - Vital Signs/Intake and Output Vital Signs (last 24 hours): Temp Pulse Resp BP Pulse Ox 98.4 F 69 20 110/73 100 08/28/16 15:00 08/28/16 15:00 08/28/16 15:00 08/28/16 15:00 08/28/16 15:00 Intake and Output: 08/28/16 08/28/16 06:59 18:59 Intake Total 2600 0 Balance 2600 0 - Medications Medications: Current Medications Acetaminophen (Tylenol 325mg Tab) 650 mg PO Q6 PRN PRN Reason: Pain, Mild (1-3) Docusate Sodium (Colace) 100 mg PO DAILY PRN PRN Reason: Constipation Last Admin: 08/27/16 09:12 Dose: 100 mg Famotidine (Pepcid) 20 mg PO BID [facility] Last Admin: 08/28/16 09:06 Dose: 20 mg Sodium Chloride (Sodium Chloride 0.9%) 1,000 mls @ 150 mls/hr IV .Q6H40M [facility] Last Admin: 08/28/16 02:20 Dose: 150 mls/hr Metronidazole (Flagyl) 500 mg in 100 mls @ 100 mls/hr IVPB Q8 [facility] PRN Reason: Protocol Last Admin: 08/28/16 14:17 Dose: 100 mls/hr Morphine Sulfate (Morphine) 2 mg IVP Q4H PRN PRN Reason: Pain, moderate (4-7) Ondansetron HCl (Zofran Inj) 4 mg IVP Q6H PRN PRN Reason: Nausea/Vomiting - Labs Labs: 08/28/16 06:00 08/28/16 06:00 PT 10.7 Seconds (9.9-11.8) 08/26/16 20:01 INR 0.99 (0.93-1.08) 08/26/16 20:01 APTT 25.9 Seconds (23.7-30.8) 08/26/16 20:01 - Constitutional Appears: Well, Non-toxic, No Acute Distress - Head Exam Head Exam: ATRAUMATIC, NORMOCEPHALIC - Eye Exam Eye Exam: Normal appearance. absent: Conjunctival injection, Scleral icterus - ENT Exam ENT Exam: Mucous Membranes Moist, Normal Oropharynx - Respiratory Exam Respiratory Exam: Clear to Ausculation Bilateral, NORMAL BREATHING PATTERN. absent: Accessory Muscle Use, Respiratory Distress - Cardiovascular Exam Cardiovascular Exam: RRR, +S1, +S2. absent: Murmur - GI/Abdominal Exam GI & Abdominal Exam: Soft. absent: Distended, Tenderness Additional comments: negative de la torre's sign - Extremities Exam Extremities Exam: absent: Calf Tenderness, Pedal Edema, Tenderness - Neurological Exam Neurological Exam: Alert, Awake, Oriented x3 - Psychiatric Exam Psychiatric exam: Normal Affect, Normal Mood - Skin Skin Exam: Dry, Intact, Normal Color, Warm Assessment and Plan - Assessment and Plan (Free Text) Assessment: 31F with no significant PMH with acute cholecystitis and cholelithiasis Abdominal pain 2/2 Acute cholecystitis LFT's normalized WBC wnl VSS Plan -OR for laparoscopic cholecystectomy with Dr. Johns -Continue IV cipro and flagyl pre-op -IVF -pain meds and antiemetics PRN -NPO until after surgery, advance diet Post op per surgery recs -Follow up surgery post-op recs -GI signed off GI ppx, SCD for DVT ppx Dispo: Possible D/C tonight if tolerating pain and diet, and cleared by surgery , otherwise continued inpatient stay on med/surg til tomorrow for further monitoring and treatment Patient seen and discussed with Dr. Hernesto Groves, PGY1 <Hernesto GIRON,Yuliana - Last Filed: 08/28/16 15:38> Objective - Vital Signs/Intake and Output Vital Signs (last 24 hours): Temp Pulse Resp BP Pulse Ox 98.4 F 69 20 110/73 100 08/28/16 15:00 08/28/16 15:00 08/28/16 15:00 08/28/16 15:00 08/28/16 15:00 Intake and Output: 08/28/16 08/28/16 06:59 18:59 Intake Total 2600 0 Balance 2600 0 - Medications Medications: Current Medications Acetaminophen (Tylenol 325mg Tab) 650 mg PO Q6 PRN PRN Reason: Pain, Mild (1-3) Docusate Sodium (Colace) 100 mg PO DAILY PRN PRN Reason: Constipation Last Admin: 08/27/16 09:12 Dose: 100 mg Famotidine (Pepcid) 20 mg PO BID [facility] Last Admin: 08/28/16 09:06 Dose: 20 mg Sodium Chloride (Sodium Chloride 0.9%) 1,000 mls @ 150 mls/hr IV .Q6H40M [facility] Last Admin: 08/28/16 02:20 Dose: 150 mls/hr Metronidazole (Flagyl) 500 mg in 100 mls @ 100 mls/hr IVPB Q8 [facility] PRN Reason: Protocol Last Admin: 08/28/16 14:17 Dose: 100 mls/hr Morphine Sulfate (Morphine) 2 mg IVP Q4H PRN PRN Reason: Pain, moderate (4-7) Ondansetron HCl (Zofran Inj) 4 mg IVP Q6H PRN PRN Reason: Nausea/Vomiting - Labs Labs: 08/28/16 06:00 08/28/16 06:00 PT 10.7 Seconds (9.9-11.8) 08/26/16 20:01 INR 0.99 (0.93-1.08) 08/26/16 20:01 APTT 25.9 Seconds (23.7-30.8) 08/26/16 20:01 Attending/Attestation - Attestation I have personally seen and examined this patient.: Yes I have fully participated in the care of the patient.: Yes I have reviewed all pertinent clinical information, including history, physical exam and plan: Yes Notes (Text): 08/28/16 15:38 Patient was seen and examined with territory sales manager medical .Agreed with resident assessment and plan. Management plan was discussed in detail with patient Education was provided.
[2016-08-28] MEDS ORDERED: Bupivacaine 0.5% Inj(30mL) ONE (15:56)
[2016-08-28] MEDS ORDERED: Iohexol 240 (50 ml) ONE (15:56)
[2016-08-28] MEDS ORDERED: Glycopyrrolate 0.2 mg/ml (2ml vial) ONE (16:09)
[2016-08-28] MEDS ORDERED: Neostigmine Methylsulfate 3mg/3ml Syringe IV ONE (16:09)
[2016-08-28] MEDS ORDERED: Sodium Chloride 0.9% 1,000 ML IV SCH ×2 (17:34→17:55)
--- NOTE | 2016-08-28 17:36 | PCM.SURG1 ---
Surgeon's Initial Post Op Note - Surgeon's Notes Surgeon: Andreas Human Resources Temp: Letty Phillips Pre-Operative Diagnosis: Acute cholecystitis Operative Findings: inflammed gallbladder Post-Operative Diagnosis: acute cholecystitis Operation Performed: Laparoscopic cholecystectomy Specimen/Specimens Removed: gallbladder Estimated Blood Loss: EBL {In ML}: 20 Date of Surgery/Procedure: 08/28/16 Time of Surgery/Procedure: 16:30
[2016-08-28 17:45] VITALS: TEMP 98.1; O2SAT 99
[2016-08-28 17:46] VITALS: RESP 20
[2016-08-28] MEDS ORDERED: Morphine 2 mg/ml ISec ONE ×3 (17:54→18:48)
[2016-08-28] MEDS: Morphine 2 mg/ml ISec IVP PRN ×2 (17:55→18:15)
[2016-08-28] MEDS ORDERED: Morphine 2 mg/ml ISec IVP ONE (18:35)
[2016-08-28 19:00] VITALS: BP 108/67; PULSE 89
[2016-08-29] MEDS: metroNIDAZOLE IV 500 mg/100 ml 500 MG/100 ML BAG IVPB SCH (05:20)
[2016-08-29 06:19] LABS: ADD MANUAL DIFF? NO
[2016-08-29 06:23] LABS: BASO # 0.02 K/mm3 (0.0-2.0); BASO % 0.2 % (0.0-3.0); GRAN # 7.59 (1.4-6.5); GRAN % 79.4 % (50.0-68.0); HEMATOCRIT 35.6 % (36.0-48.0); LYMPH # 1.1 (1.2-3.4); LYMPH % 11.5 % (22.0-35.0); MEAN CELL VOLUME 89.9 fL (80.0-105.0); MEAN CORPUSCULAR HEMOGLOBIN 31.1 pg (25.0-35.0); MEAN CORPUSCULAR HGB CONC 34.6 g/dl (31.0-37.0); MONO # 0.9 (0.1-0.6); MONO % 8.9 % (1.0-6.0); PLATELET COUNT 200 10^3/uL (120.0-450.0); RED CELL DISTRIBUTION WIDTH 11.9 % (11.5-14.5); WHITE BLOOD COUNT 9.6 10^3/ul (4.5-11.0)
[2016-08-29 06:52] LABS: ALB/GLOB RATIO 1.3 (1.1-1.8); ALKALINE PHOSPHATASE 85 U/L (38-133); ALT/SGPT 154 U/L (7-56); AST/SGOT 41 U/L (15-39); BILIRUBIN,TOTAL 0.7 mg/dL (0.2-1.3); BLOOD UREA NITROGEN 4 mg/dL (7-21); CARBON DIOXIDE 21 mmol/L (21-33); CHLORIDE 106 mmol/L (98-107); GFR AFRICAN-AMERICAN > 60; GLUCOSE,RANDOM 83 mg/dL (70-110); POTASSIUM 4.1 mmol/L (3.6-5.0); SODIUM 138 mmol/L (132-148)
--- NOTE | 2016-08-29 07:04 | CP.PCM.DIS ---
<Melissa Groves - Last Filed: 08/29/16 13:24> Provider - Provider Date of Admission: 08/27/16 16:07 Attending physician: Bladimir Cason MD Primary care physician: NO PRIMARY CARE PROVIDER Time Spent in preparation of Discharge (in minutes): 35 Diagnosis - Discharge Diagnosis (1) Cholecystitis Status: Acute (2) Cholelithiasis Status: Acute Hospital Course - Lab Results Lab Results: Most Recent Lab Values WBC 9.6 10^3/ul (4.5-11.0) D 08/29/16 06:00 RBC 3.96 10^6/uL (3.5-6.1) 08/29/16 06:00 Hgb 12.3 gm/dL (12.0-16.0) 08/29/16 06:00 Hct 35.6 % (36.0-48.0) L 08/29/16 06:00 MCV 89.9 fL (80.0-105.0) 08/29/16 06:00 MCH 31.1 pg (25.0-35.0) 08/29/16 06:00 MCHC 34.6 g/dl (31.0-37.0) 08/29/16 06:00 RDW 11.9 % (11.5-14.5) 08/29/16 06:00 Plt Count 200 10^3/uL (120.0-450.0) 08/29/16 06:00 MPV 10.0 fl (7.0-11.0) 08/29/16 06:00 Gran % 79.4 % (50.0-68.0) H 08/29/16 06:00 Lymph % (Auto) 11.5 % (22.0-35.0) L 08/29/16 06:00 Stephens % (Auto) 8.9 % (1.0-6.0) H 08/29/16 06:00 Eos % (Auto) 0.0 % (1.5-5.0) L 08/29/16 06:00 Baso % (Auto) 0.2 % (0.0-3.0) 08/29/16 06:00 Gran # 7.59 (1.4-6.5) H 08/29/16 06:00 Lymph # 1.1 (1.2-3.4) L 08/29/16 06:00 Stephens # 0.9 (0.1-0.6) H 08/29/16 06:00 Eos # 0.0 (0.0-0.7) 08/29/16 06:00 Baso # 0.02 K/mm3 (0.0-2.0) 08/29/16 06:00 PT 10.7 Seconds (9.9-11.8) 08/26/16 20:01 INR 0.99 (0.93-1.08) 08/26/16 20:01 APTT 25.9 Seconds (23.7-30.8) 08/26/16 20:01 Sodium 138 mmol/L (132-148) 08/28/16 06:00 Potassium 3.9 mmol/L (3.6-5.0) 08/28/16 06:00 Chloride 108 mmol/L (98-107) H 08/28/16 06:00 Carbon Dioxide 23 mmol/L (21-33) 08/28/16 06:00 Anion Gap 11 (10-20) 08/28/16 06:00 BUN 5 mg/dL (7-21) L 08/28/16 06:00 Creatinine 0.6 mg/dL (0.5-1.4) 08/28/16 06:00 Est GFR ( Amer) > 60 08/28/16 06:00 Est GFR (Non-Af Amer) > 60 08/28/16 06:00 Random Glucose 71 mg/dL (70-110) 08/28/16 06:00 Calcium 8.5 mg/dL (8.4-10.5) 08/28/16 06:00 Total Bilirubin 0.8 mg/dL (0.2-1.3) 08/28/16 06:00 AST 74 U/L (15-39) H 08/28/16 06:00 ALT 202 U/L (7-56) H 08/28/16 06:00 Alkaline Phosphatase 88 U/L (38-133) 08/28/16 06:00 Total Protein 6.0 g/dL (5.8-8.3) 08/28/16 06:00 Albumin 3.3 g/dL (3.0-4.8) 08/28/16 06:00 Globulin 2.7 gm/dL 08/28/16 06:00 Albumin/Globulin Ratio 1.2 (1.1-1.8) 08/28/16 06:00 Lipase 180 U/L (23-300) 08/26/16 20:01 Beta HCG, Quant < 2.39 mIU/mL (0-6.15) 08/27/16 16:29 Urine Color Yellow (YELLOW) 08/26/16 20:01 Urine Appearance Clear (CLEAR) 08/26/16 20:01 Urine pH 7.5 (4.7-8.0) 08/26/16 20:01 Ur Specific [place] 1.015 (1.005-1.035) 08/26/16 20:01 Urine Protein Trace mg/dL (<30 mg/dL) H 08/26/16 20:01 Urine Glucose (UA) Negative mg/dL (NEGATIVE) 08/26/16 20:01 Urine Ketones 15 mg/dL (NEGATIVE) H 08/26/16 20:01 Urine Blood Small (NEGATIVE) H 08/26/16 20:01 Urine Nitrate Negative (NEGATIVE) 08/26/16 20:01 Urine Bilirubin Moderate (NEGATIVE) H 08/26/16 20:01 Urine Urobilinogen 2.0 E.U./dL (<1 E.U./dL) H 08/26/16 20:01 Ur Leukocyte Esterase Trace Reece/uL (NEGATIVE) H 08/26/16 20:01 Urine RBC 10 - 15 /hpf (0-2) 08/26/16 20:01 Urine WBC 5 - 10 /hpf (0-6) 08/26/16 20:01 Ur Epithelial Cells 4 - 5 /hpf (0-5) 08/26/16 20:01 Amorphous Sediment Small 08/26/16 20:01 Urine Bacteria Many (NEG) 08/26/16 20:01 Urine Other Uyeast 08/26/16 20:01 Hepatitis A IgM Ab Negative (NEGATIVE) 08/27/16 07:30 Hep Bs Antigen Negative (NEGATIVE) 08/27/16 07:30 Hep B Core IgM Ab Negative (NEGATIVE) 08/27/16 07:30 Hepatitis C Antibody Negative (NEGATIVE) 08/27/16 07:30 - Hospital Course Hospital Course: Patient is a 31F with no significant PMH who presented to the ED with unresolving epigastric and RUQ abdominal pain and nausea for 1 day. Patient had a previous similar episode 2 months ago that resolved spontaneously. Patient was afebrile with stable vital signs, no leukocytosis, but a total bilirubin of 2.9, and elevated AST and ALT. Abdominal ultrasound showed cholelithiasis with minimal wall thickening. Patient was given antibiotics, anti-emetics, and analgesias and admitted to the med-surg floor. GI and general surgery were consulted. Patient's symptoms resolved overnight and Tbili trended down. MRCP showed no CBD stone or blockage. The next day patient was taken to the OR for a laparoscopic cholecystectomy. Patient tolerated the procedure without complication and recovered well. Patient was afebrile with stable vitals, able to tolerate a regular diet the day after surgery, tolerated pain with PO NSAIDs , and was ambulating without difficulty. Labs continued to trend down and surgery and GI cleared the patient for discharge to home with PO NSAIDs and follow up with Dr. Johns and her primary care physician in 1-2 weeks. Plan was discussed with the patient who expressed understanding and agreement with the course of action. Patient was discharged to home. For full hospital course, please refer to chart Discharge Exam - Head Exam Head Exam: ATRAUMATIC, NORMOCEPHALIC - Eye Exam Eye Exam: Normal appearance. absent: Conjunctival injection, Scleral icterus - ENT Exam ENT Exam: Mucous Membranes Moist, Normal Oropharynx - Respiratory Exam Respiratory Exam: Clear to PA & Lateral, NORMAL BREATHING PATTERN. absent: Accessory Muscle Use, Respiratory Distress - Cardiovascular Exam Cardiovascular Exam: RRR, +S1, +S2. absent: Diastolic murmur, Systolic Murmur - GI/Abdominal Exam GI & Abdominal Exam: Soft, Tenderness (appropriate tendernes around incisions). absent: Distended, Firm, Rigid Additional comments: Surgical incisions well approximated with dermabond with no surrounding erythema or active drainage or bleeding - Extremities Exam Extremities exam: normal capillary refill, normal inspection, pedal pulses present - Back Exam Back exam: NORMAL INSPECTION. absent: CVA tenderness (L), CVA tenderness (R), vertebral tenderness - Neurological Exam Neurological exam: Alert, Oriented x3 - Psychiatric Exam Psychiatric exam: Normal Affect, Normal Mood - Skin Skin Exam: Dry, Normal Color, Warm Discharge Plan - Follow Up Plan Condition: FAIR Disposition: HOME/ ROUTINE Instructions: Laparoscopic Cholecystectomy (DC) Additional Instructions: Follow up with your primary doctor within 1 week Follow up with Dr. Johns in his office in 1-2 weeks Do not lift anything >15 pounds for 4-6 weeks or as advised by Dr. Johns You may shower. The glue will fall off on it's own in time. Limit fat intake for 4-6 weeks. Re-introduce to diet as tolerated. You may resume light activities of daily living and return to work on Thursday Return to the ER for fever greater than 100.4F, nausea and vomiting not resolving, or any other concerning symptoms Take tylenol or ibuprofen as needed for pain. If it is not adequate, call Dr. Johns's office. Take ibuprofen with food or an antacid. Referrals: PCP,NO [Primary Care Provider] - Simón Johns MD [Staff Provider] - <Hernesto GIRON,[facility] - Last Filed: 08/29/16 14:39> Provider - Provider Date of Admission: 08/27/16 16:07 Attending physician: Bladimir Cason MD Primary care physician: NO PRIMARY CARE PROVIDER Hospital Course - Lab Results Lab Results: Most Recent Lab Values WBC 9.6 10^3/ul (4.5-11.0) D 08/29/16 06:00 RBC 3.96 10^6/uL (3.5-6.1) 08/29/16 06:00 Hgb 12.3 gm/dL (12.0-16.0) 08/29/16 06:00 Hct 35.6 % (36.0-48.0) L 08/29/16 06:00 MCV 89.9 fL (80.0-105.0) 08/29/16 06:00 MCH 31.1 pg (25.0-35.0) 08/29/16 06:00 MCHC 34.6 g/dl (31.0-37.0) 08/29/16 06:00 RDW 11.9 % (11.5-14.5) 08/29/16 06:00 Plt Count 200 10^3/uL (120.0-450.0) 08/29/16 06:00 MPV 10.0 fl (7.0-11.0) 08/29/16 06:00 Gran % 79.4 % (50.0-68.0) H 08/29/16 06:00 Lymph % (Auto) 11.5 % (22.0-35.0) L 08/29/16 06:00 Stephens % (Auto) 8.9 % (1.0-6.0) H 08/29/16 06:00 Eos % (Auto) 0.0 % (1.5-5.0) L 08/29/16 06:00 Baso % (Auto) 0.2 % (0.0-3.0) 08/29/16 06:00 Gran # 7.59 (1.4-6.5) H 08/29/16 06:00 Lymph # 1.1 (1.2-3.4) L 08/29/16 06:00 Stephens # 0.9 (0.1-0.6) H 08/29/16 06:00 Eos # 0.0 (0.0-0.7) 08/29/16 06:00 Baso # 0.02 K/mm3 (0.0-2.0) 08/29/16 06:00 PT 10.7 Seconds (9.9-11.8) 08/26/16 20:01 INR 0.99 (0.93-1.08) 08/26/16 20:01 APTT 25.9 Seconds (23.7-30.8) 08/26/16 20:01 Sodium 138 mmol/L (132-148) 08/29/16 06:00 Potassium 4.1 mmol/L (3.6-5.0) 08/29/16 06:00 Chloride 106 mmol/L (98-107) 08/29/16 06:00 Carbon Dioxide 21 mmol/L (21-33) 08/29/16 06:00 Anion Gap 15 (10-20) 08/29/16 06:00 BUN 4 mg/dL (7-21) L 08/29/16 06:00 Creatinine 0.6 mg/dL (0.5-1.4) 08/29/16 06:00 Est GFR ( Amer) > 60 08/29/16 06:00 Est GFR (Non-Af Amer) > 60 08/29/16 06:00 Random Glucose 83 mg/dL (70-110) 08/29/16 06:00 Calcium 9.0 mg/dL (8.4-10.5) 08/29/16 06:00 Total Bilirubin 0.7 mg/dL (0.2-1.3) 08/29/16 06:00 AST 41 U/L (15-39) H 08/29/16 06:00 ALT 154 U/L (7-56) H 08/29/16 06:00 Alkaline Phosphatase 85 U/L (38-133) 08/29/16 06:00 Total Protein 6.0 g/dL (5.8-8.3) 08/29/16 06:00 Albumin 3.4 g/dL (3.0-4.8) 08/29/16 06:00 Globulin 2.6 gm/dL 08/29/16 06:00 Albumin/Globulin Ratio 1.3 (1.1-1.8) 08/29/16 06:00 Lipase 180 U/L (23-300) 08/26/16 20:01 Beta HCG, Quant < 2.39 mIU/mL (0-6.15) 08/27/16 16:29 Urine Color Yellow (YELLOW) 08/26/16 20:01 Urine Appearance Clear (CLEAR) 08/26/16 20:01 Urine pH 7.5 (4.7-8.0) 08/26/16 20:01 Ur Specific [place] 1.015 (1.005-1.035) 08/26/16 20:01 Urine Protein Trace mg/dL (<30 mg/dL) H 08/26/16 20:01 Urine Glucose (UA) Negative mg/dL (NEGATIVE) 08/26/16 20:01 Urine Ketones 15 mg/dL (NEGATIVE) H 08/26/16 20:01 Urine Blood Small (NEGATIVE) H 08/26/16 20:01 Urine Nitrate Negative (NEGATIVE) 08/26/16 20:01 Urine Bilirubin Moderate (NEGATIVE) H 08/26/16 20:01 Urine Urobilinogen 2.0 E.U./dL (<1 E.U./dL) H 08/26/16 20:01 Ur Leukocyte Esterase Trace Reece/uL (NEGATIVE) H 08/26/16 20:01 Urine RBC 10 - 15 /hpf (0-2) 08/26/16 20:01 Urine WBC 5 - 10 /hpf (0-6) 08/26/16 20:01 Ur Epithelial Cells 4 - 5 /hpf (0-5) 08/26/16 20:01 Amorphous Sediment Small 08/26/16 20:01 Urine Bacteria Many (NEG) 08/26/16 20:01 Urine Other Uyeast 08/26/16 20:01 Hepatitis A IgM Ab Negative (NEGATIVE) 08/27/16 07:30 Hep Bs Antigen Negative (NEGATIVE) 08/27/16 07:30 Hep B Core IgM Ab Negative (NEGATIVE) 08/27/16 07:30 Hepatitis C Antibody Negative (NEGATIVE) 08/27/16 07:30 Attending/Attestation - Attestation I have personally seen and examined this patient.: Yes I have fully participated in the care of the patient.: Yes I have reviewed all pertinent clinical information, including history, physical exam and plan: Yes Notes (Text): Patient was seen and examined with medical administrative technician .Agreed with resident assessment and plan. 31 F SP cholycystectomy yesterday, she is afebrile, tolerating diet.She is ambulatory, cleared by surgery t be discharged.Patient will be discharged home and will follow up with Surgery . Management plan was discussed in detail with patient Education was provided.
--- NOTE | 2016-08-29 08:31 | OP ---
PROCEDURE DATE: 08/28/2016 The patient seen on the floor with acute cholecystitis, biliary colic. In the operating room, the patient was identified by name, number, procedure, laterality, my name, diego heller, her name, number and the consent. The patient was counseled preoperatively of the risks of ble eding, infection, heart and lung problems, common duct injury and the chance this could be open. PREOPERATIVE DIAGNOSES: Acute cholecystitis, biliary colic. POSTOPERATIVE DIAGNOSES: Acute cholecystitis, biliary colic. OPERATION PERFORMED: Laparoscopic cholecystectomy. SURGEON: Dr. Simón Johns MD NURSE ADMINISTRATOR: Dr. Prakash Glynn DO SECOND NURSE ADMINISTRATOR: Dr. Myron Phillips DO DESCRIPTION OF PROCEDURE: In the operating room, the patient was identified by name, number, procedur e, laterality and my krystal. An umbilical incision was made through the skin and subcutaneous tissues. The Veress needle was inserted, 2-1/2 liters were insufflated to a pressure of about 10 and the Vis iport was placed without issue. Visiport showed an inflamed gallbladder with minimal adhesions. A xi phoid 5 and 2 lateral 5s were placed. The gallbladder was brought up by the fundus and then the infu ndibulum. Immediately obvious was a bluish structure at the end of the gallbladder. Initially, this was unclear and the artery anterior to it was dissected out very nicely. The space behind the gallb ladder was cleaned superiorly and inferiorly and the plate of the liver was seen very nicely. This e ntire structure was coming into the gallbladder without an issue. The cystic artery was doubly clipp ed and divided and this allowed the cystic duct to spread out. The bluish structure was clearly the cystic duct. At a point of election, close to the gallbladder, the cystic duct was doubly clipped an d divided and the gallbladder taken off the liver bed using the Harmonic scalpel and then the hook ca utery. It was placed in a bag and removed. It was closed with an EndoStitch. The abdomen was explo red. There was nothing untoward. There were no issues to the duodenum, intestine, colon, etc. Ther e was no bleeding, no bile. There was no contamination. CO2 was removed. The sutures were tied. T he wounds were injected with 30 mL of Marcaine 0.5% and the incisions were closed with subcuticular c losure. The patient was taken to recovery room in good condition after sponge and needle counts were declared correct. Simón Johns MD cc: [phone] TT: 08/28/2016 18:37:23 rn 08/29/2016 07:29:46
--- NOTE | 2016-08-29 10:52 | CP.PCM.PN ---
Subjective - Date & Time of Evaluation Date of Evaluation: 08/29/16 Time of Evaluation: 07:00 - Subjective Subjective: SURGERY PROGRESS NOTE FOR DR. GARCIA 31F seen and examined bedside. States abdominal pain is very minimal. She is tolerating diet, denies fevers/chills. Objective - Vital Signs/Intake and Output Vital Signs (last 24 hours): Temp Pulse Resp BP Pulse Ox 98.1 F 89 20 108/67 99 08/28/16 17:28 08/28/16 18:28 08/28/16 18:28 08/28/16 18:28 08/28/16 18:28 Intake and Output: 08/29/16 08/29/16 06:59 18:59 Intake Total 400 Balance 400 - Medications Medications: Current Medications Acetaminophen (Tylenol 325mg Tab) 650 mg PO Q6 PRN PRN Reason: Pain, Mild (1-3) Docusate Sodium (Colace) 100 mg PO DAILY PRN PRN Reason: Constipation Last Admin: 08/27/16 09:12 Dose: 100 mg Famotidine (Pepcid) 20 mg PO BID VINICIUS Last Admin: 08/29/16 09:35 Dose: 20 mg Metronidazole (Flagyl) 500 mg in 100 mls @ 100 mls/hr IVPB Q8 VINICIUS PRN Reason: Protocol Last Admin: 08/29/16 05:20 Dose: 100 mls/hr Sodium Chloride (Sodium Chloride 0.9%) 1,000 mls @ 100 mls/hr IV .Q10H VINICIUS Morphine Sulfate (Morphine) 2 mg IVP Q4H PRN PRN Reason: Pain, moderate (4-7) Ondansetron HCl (Zofran Inj) 4 mg IVP Q6H PRN PRN Reason: Nausea/Vomiting - Labs Labs: 08/29/16 06:00 08/29/16 06:00 PT 10.7 Seconds (9.9-11.8) 08/26/16 20:01 INR 0.99 (0.93-1.08) 08/26/16 20:01 APTT 25.9 Seconds (23.7-30.8) 08/26/16 20:01 - Constitutional Appears: Non-toxic, No Acute Distress - Head Exam Head Exam: ATRAUMATIC - Respiratory Exam Respiratory Exam: Clear to Ausculation Bilateral, NORMAL BREATHING PATTERN - Cardiovascular Exam Cardiovascular Exam: REGULAR RHYTHM, +S1, +S2 - GI/Abdominal Exam GI & Abdominal Exam: Soft. absent: Distended, Firm, Guarding, Rigid, Tenderness , Rebound Additional comments: incisions clean dry intact. - Neurological Exam Neurological Exam: Alert, Awake - Skin Skin Exam: Dry, Intact, Normal Color, Warm Assessment and Plan - Assessment and Plan (Free Text) Assessment: 31F s/p lap cholecystectomy POD#1 - ADAT - pain control - Patient clear from surgery - follow up outpatient Further recs discuss with Dr. Andreas Phillips, PGY1
== END 2016-08-29 12:30 | disposition home or self-care (01) | DRG 419 ==
LOC: ED 18:27 → ERH 22:12 → 3RNO 23:44 → OBSVTOIN 08-27 16:07
PROVIDERS: ADMIT Internal Medicine; ATTEND Internal Medicine
PROC: 0FT44ZZ Resection of Gallbladder, Percutaneous Endoscopic Approach (ICD-10-PCS; principal; 2016-08-28 15:30)
DX: K80.12 Calculus of gallbladder with acute and chronic cholecystitis without obstruction (principal)